=== PATIENT | male | born 1955 | race Two or more races ===

== ENCOUNTER 2017-05-18 10:48 | Emergency (ER) | payer MEDICARE ==
[~2017-05-18] VITALS: Ht 182.9 cm; Wt 59.1 kg
[~2017-05-18 10:48] MED LIST: /MOXI40TA PO; DULC5TAB PO; LEVA1TAB2 PO; NO MEDS AT HOME; TYLE325T5 PO
[2017-05-18 10:49] VITALS: BP 117/80
[2017-05-18] MEDS ORDERED: CLOBETASOL PROP 0.05% OINT 30 GM TOP ONE (11:45)
[2017-05-18] MEDS ORDERED: methylPREDNISolone INJ 125 MG/2 ML VIAL (J2930) IM ONE (11:45)
[2017-05-18] MEDS ORDERED: PRED20TA PO (12:07)
== END 2017-05-18 12:14 | disposition home or self-care (01) ==
LOC: M ED 10:48
DX: L30.9 Dermatitis, unspecified (principal)
CPT/HCPCS: 96372; 99282; J2930

== ENCOUNTER → 2017-06-20 | Outpatient (CLI) | payer MEDICARE ==
[~2017-06-20] MED LIST changes: +PRED20TA PO
[2017-06-20 11:46] LABS: MEAN CORPUSCULAR HEMOGLOBIN 31.8 pg (27.0-33.0); MEAN CORPUSCULAR HGB CONC 32.3 g/dl (32.0-36.5); MEAN CORPUSCULAR VOLUME 98.4 fl (80.0-96.0); RED CELL DISTRIBUTION WIDTH 13.7 % (11.5-14.5); WHITE BLOOD COUNT 9.2 K/mm3 (4.0-10.0)
--- NOTE | 2017-06-20 11:53 | REP ---
Clinical: COPD. Comparison: 02/24/2015. Findings: Mediastinum and cardiac silhouette are normal. The lung jane demonstrate oligemia and hyperinflation as well as scattered chronic changes consistent with COPD. No acute consolidation, effusion, or pneumothorax. Skeletal structures are within normal limits and stable. Impression: COPD. No acute cardiopulmonary process. Signed by Rubén Castro MD 06/20/2017 11:44 A
[2017-06-20 12:16] LABS: ALBUMIN 3.7 GM/DL (3.2-5.2); ALBUMIN/GLOBULIN RATIO 0.95 (1.00-1.93); ALKALINE PHOSPHATASE 61 U/L (45-117); ALT/SGPT 18 U/L (12-78); ANION GAP 8 MEQ/L (8-16); AST/SGOT 16 U/L (15-37); BILIRUBIN,TOTAL 0.3 MG/DL (0.2-1.0); BLOOD UREA NITROGEN 13 MG/DL (7-18); CALCIUM LEVEL 9.5 MG/DL (8.8-10.2); CARBON DIOXIDE LEVEL 28 MEQ/L (21-32); CHLORIDE LEVEL 103 MEQ/L (98-107); CHOLESTEROL LEVEL 197 MG/DL (<200); GLOMERULAR FILTRATION RATE > 60.0 (>49); GLUCOSE, FASTING 98 MG/DL (80-110); POTASSIUM SERUM 4.5 MEQ/L (3.5-5.1); SODIUM LEVEL 139 MEQ/L (136-145); TOTAL PROTEIN 7.6 GM/DL (6.4-8.2); TRIGLYCERIDES LEVEL 128 MG/DL (<150)
--- NOTE | 2017-06-21 09:08 | ECGEPIP ---
Stationary ECG Study [facility] Test Date: 2017-06-20 Pat Name: HAVEN FLORES Department: Room: - Gender: M Business Instructor: VELVET : 1955 Requested By: Maria Teresa Ortega Order Number: [id number] Reading MD: Saurabh Peoples Measurements Intervals [place] Rate: 64 P: 74 [place]: 128 QRS: 74 QRSD: 91 T: 80 QT: 410 QTc: 424 Interpretive Statements SINUS RHYTHM WITH SINUS ARRYTHMIA Electronically Signed On 06-21-2017 9:08:33 EDT by Saurabh Peoples
== END ==
LOC: M LAB 10:31
PROVIDERS: ATTEND Family Medicine
DX: R53.83 Other fatigue (principal); J44.9 Chronic obstructive pulmonary disease, unspecified; Z79.899 Other long term (current) drug therapy

== ENCOUNTER → 2017-07-15 | Outpatient (REF) | payer MEDICARE | LOC: M SMT 12:49 | PROVIDERS: ATTEND Nurse Practitioner Women's Health | DX: R97.20 Elevated prostate specific antigen [PSA] (principal); Z79.899 Other long term (current) drug therapy | CPT/HCPCS: 51798; 81001; 87086; G0463 ==

== ENCOUNTER → 2017-08-12 | Outpatient (CLI) | payer MEDICARE ==
--- NOTE | 2017-08-12 13:09 | REP ---
TRANSRECTAL PROSTATE ULTRASOUND WITH ULTRASOUND GUIDANCE FOR PROSTATE BIOPSY: Real-time sonographic evaluation of prostate performed utilizing transrectal probe. Size of the gland is 4.1 x 2.6 x 5.4 cm for a total volume of 30.2 mL. Echotexture is heterogeneous. A nodular area on the left measures 1.3 x 1.7 cm. Seminal vesicles appear symmetrical. Ultrasound guidance was provided for Dr. iVncent who performed ultrasound guided biopsy of the prostate. Signed by Kayden Arriaga MD 08/12/2017 05:46 P
== END ==
LOC: M SMT PRO 08:44
PROVIDERS: ATTEND Urology
DX: C61 Malignant neoplasm of prostate (principal); R97.20 Elevated prostate specific antigen [PSA]
CPT/HCPCS: 55700; 76872; 76942; G0416

== ENCOUNTER → 2017-08-26 | Outpatient (CLI) | payer MEDICARE ==
[~2017-08-26] MED LIST changes: +ISOVUE-370 76% 100ML VIAL (Q9967) As Ordered ONE
[2017-08-26 08:37] LABS: MEAN CORPUSCULAR HEMOGLOBIN 31.7 pg (27.0-33.0); MEAN CORPUSCULAR HGB CONC 32.8 g/dl (32.0-36.5); MEAN CORPUSCULAR VOLUME 96.9 fl (80.0-96.0); PLATELET COUNT, AUTOMATED 290 10^3/uL (150-450); RED CELL DISTRIBUTION WIDTH 14.5 % (11.5-14.5); WHITE BLOOD COUNT 11.7 10^3/uL (4.0-10.0)
[2017-08-26 09:10] LABS: ANION GAP 10 MEQ/L (8-16); BLOOD UREA NITROGEN 13 MG/DL (7-18); CALCIUM LEVEL 8.9 MG/DL (8.8-10.2); CARBON DIOXIDE LEVEL 30 MEQ/L (21-32); CHLORIDE LEVEL 103 MEQ/L (98-107); CREATININE FOR GFR 0.86 MG/DL (0.70-1.30); GLOMERULAR FILTRATION RATE > 60.0 (>49); GLUCOSE, FASTING 87 MG/DL (80-110); POTASSIUM SERUM 3.6 MEQ/L (3.5-5.1); SODIUM LEVEL 143 MEQ/L (136-145)
--- NOTE | 2017-08-26 09:40 | REP ---
Clinical: Prostate cancer. Comparison: 10/03/2012. Technique: Axial precontrast, contrast enhanced and delayed images from the lung bases to the pubic symphysis using oral and 100 ml Isovue 370 intravenous contrast material with coronal and sagittal re-formations. Findings: Lung bases demonstrate mild early emphysematous changes. Visualized heart and pericardium are normal. Liver demonstrates few scattered hypodensities compatible with cysts measuring up to 1 cm diameter. Spleen, pancreas, gallbladder, bilateral adrenal glands and kidneys are normal. The enteric system is without obstruction or obvious acute inflammatory process. Pelvis demonstrates mild posterior bladder wall thickening and enlarged prostate gland. No pelvic fluid or ascites. No obvious adenopathy although evaluation is somewhat limited by paucity of intraperitoneal fat. No free air. Atherosclerotic changes to the aorta and vasculature noted without aneurysm. Musculoskeletal structures demonstrate degenerative changes without focal osseous abnormality. Impression: 1. Lung bases suggest mild early emphysematous changes. 2. Mildly enlarged prostate gland with associated minimal posterior bladder wall thickening. 3. No obvious adenopathy, ascites, or solitary mass lesion. 4. No obvious osseous metastatic process. Signed by Rubén Castro MD 08/26/2017 09:32 A
--- NOTE | 2017-08-26 14:41 | REP ---
Clinical: History of prostate cancer. Technique: PA and lateral. Comparison: 06/20/2017. Findings: Mediastinum and cardiac silhouette are stable. Lung jane demonstrate chronic fibrosis and interstitial changes. A subtle nodular density with spiculated margins in the medial right lower lung zone on frontal radiograph cannot be excluded. No further consolidation, effusion, or pneumothorax. Skeletal structures demonstrate age-related degenerative changes. Impression: Cannot exclude small spiculated nodular lesion in the right lower lung zone. Consider chest CT for further investigation. Signed by Rubén Castro MD 08/26/2017 09:16 A
== END ==
LOC: M RAD 08:01
PROVIDERS: ATTEND Urology
DX: C61 Malignant neoplasm of prostate (principal); R91.8 Other nonspecific abnormal finding of lung field
CPT/HCPCS: 71020; 74178; 80048; 85027; Q9967

== ENCOUNTER → 2017-08-29 | Outpatient (CLI) | payer MEDICARE ==
[~2017-08-29] MED LIST changes: -ISOVUE-370 76% 100ML VIAL (Q9967) As Ordered ONE
--- NOTE | 2017-08-29 14:44 | REP ---
WHOLE BODY BONE SCAN: Following the intravenous administration of 21.5 mCi technetium 99m MDP, patient's whole body is imaged in the anterior and posterior projections with additional oblique images of the thoracic and pelvic regions performed as well as lateral views of the calvarium, knees, and feet. There is no compelling scintigraphic evidence of osseous metastases. Arthritic uptake is seen at the proximal tibiofibular articulation on the left and, also, there is arthritic uptake in both feet. There appears to be mild bilateral arthritic uptake at the sacroiliac joints bilaterally, as well as in the lateral aspect of the left knee joint. Renal and bladder activity are seen. IMPRESSION: Scattered arthritic uptake without compelling scintigraphic evidence of osseous metastases. Signed by Kayden Arriaga MD 08/29/2017 04:09 P
== END ==
LOC: M RAD 09:49
PROVIDERS: ATTEND Urology
DX: C61 Malignant neoplasm of prostate (principal)
CPT/HCPCS: 78306; A9503

== ENCOUNTER → 2017-09-09 | Outpatient (CLI) | payer MEDICARE ==
[~2017-09-09] MED LIST changes: +ISOVUE-370 76% 100ML VIAL (Q9967) As Ordered ONE
--- NOTE | 2017-09-09 13:58 | REP ---
Clinical: History of COPD/emphysema and prostate cancer. Comparison: 10/03/2012. Technique: Axial contrast enhanced images from the thoracic inlet to the upper abdomen using 100 ml Isovue 370 intravenous contrast material with coronal and sagittal re-formations. Findings: Advanced COPD and emphysematous changes are appreciated along with stable biapical scarring containing elements of nodular soft tissue and fibrosis but unchanged from prior examination. New areas of scarring identified in the right middle lobe and lingula. Small scattered pleural plaques remain unchanged. No acute consolidation, significant nodule or mass lesion identified. No pleural effusion/reaction or pneumothorax. Tracheobronchial tree is patent. No adenopathy. Mediastinum demonstrates normal thoracic aorta and heart/pericardium. Musculoskeletal structures demonstrate age-related changes without focal osseous abnormality. Limited upper abdomen demonstrates normal bilateral adrenal glands. Impression: Advanced COPD and emphysematous changes with stable biapical irregular scarring as well as new areas of scarring in the right middle lobe and lingula. No acute mediastinal or pleuroparenchymal process identified. No osseous lesions appreciated. Signed by Rubén Castro MD 09/09/2017 01:50 P
== END ==
LOC: M RAD 13:22
PROVIDERS: ATTEND Urology
DX: C61 Malignant neoplasm of prostate (principal); R91.1 Solitary pulmonary nodule; Z87.891 Personal history of nicotine dependence
CPT/HCPCS: 71260; Q9967

== ENCOUNTER → 2017-10-06 | Outpatient (CLI) | payer MEDICARE ==
[~2017-10-06] MED LIST changes: -ISOVUE-370 76% 100ML VIAL (Q9967) As Ordered ONE
[2017-10-06 18:11] LABS: MEAN CORPUSCULAR HEMOGLOBIN 31.5 pg (27.0-33.0); MEAN CORPUSCULAR VOLUME 98.5 fl (80.0-96.0); PLATELET COUNT, AUTOMATED 324 10^3/uL (150-450); RED CELL DISTRIBUTION WIDTH 14.2 % (11.5-14.5); WHITE BLOOD COUNT 10.9 10^3/uL (4.0-10.0)
[2017-10-06 18:23] LABS: INR 0.91
[2017-10-06 18:43] LABS: ANION GAP 6 MEQ/L (8-16); BLOOD UREA NITROGEN 12 MG/DL (7-18); CALCIUM LEVEL 9.6 MG/DL (8.8-10.2); CARBON DIOXIDE LEVEL 31 MEQ/L (21-32); CHLORIDE LEVEL 104 MEQ/L (98-107); CREATININE FOR GFR 0.94 MG/DL (0.70-1.30); GLOMERULAR FILTRATION RATE > 60.0 (>49); GLUCOSE, FASTING 92 MG/DL (80-110); POTASSIUM SERUM 4.7 MEQ/L (3.5-5.1); SODIUM LEVEL 141 MEQ/L (136-145)
== END ==
LOC: M SMT 10:07
PROVIDERS: ATTEND Nurse Practitioner Women's Health
DX: Z01.818 Encounter for other preprocedural examination (principal); C61 Malignant neoplasm of prostate; J44.9 Chronic obstructive pulmonary disease, unspecified; N52.1 Erectile dysfunction due to diseases classified elsewhere; Z79.899 Other long term (current) drug therapy

== ENCOUNTER 2017-10-11 05:47 | Inpatient (IN) | payer MEDICARE ==
[2017-10-11] MEDS ORDERED: LR 1,000 ML IV (06:00)
[2017-10-11] MEDS ORDERED: fentaNYL 250 MCG/5 ML INJECTION (J3010) As Ordered (13:30)
[2017-10-11] MEDS ORDERED: LIDOCAINE 2% INJ 100 MG/5 ML SDV (FOR ANES.) As Ordered (13:30)
[2017-10-11] MEDS ORDERED: dexameTHASONE 4 MG/ML 1ML VIAL (J1100) As Ordered ×2 (13:30→15:37)
[2017-10-11] MEDS ORDERED: ROCURONIUM BROMIDE 50 MG/5 ML VIAL As Ordered (13:30)
[2017-10-11] MEDS ORDERED: PROPOFOL 200 MG/20 ML VIAL As Ordered ×2 (13:30→16:15)
[2017-10-11] MEDS ORDERED: MIDAZOLAM INJ 2 MG/2 ML VIAL (J2250) As Ordered (13:31)
[2017-10-11] MEDS ORDERED: PHENYLephrine HCL 500 MCG/5 ML (100MCG/ML) SYRINGE (J2370) As Ordered (15:37)
[2017-10-11] MEDS ORDERED: ePHEDrine SULFATE 25 MG/5 ML(5MG/ML) SYRINGE As Ordered (15:37)
[2017-10-11] MEDS ORDERED: GLYCOPYRROLATE INJ 0.2 MG/ML 2 ML VIAL As Ordered (16:16)
[2017-10-11] MEDS ORDERED: NEOSTIGMINE 10 MG/10 ML VIAL (J2710) As Ordered (16:27)
[2017-10-11] MEDS ORDERED: HYDROmorphone HCL 2 MG/ML 1ML VIAL (J1170) As Ordered (16:33)
[2017-10-11] MEDS ORDERED: LIDOCAINE 2% 5ML JELLY UROJET As Ordered (17:33)
[2017-10-11] MEDS ORDERED: fentaNYL 100 MCG/2 ML INJECTION (J3010) IV (19:15)
[2017-10-11] MEDS ORDERED: METOCLOPRAMIDE INJ 10MG/2ML VIAL (J2765) IV (19:15)
[2017-10-11] MEDS ORDERED: NORCO, ANEXSIA 5/325MG TABLET (HYDROcodone/ACETAMINOPHEN) PO (19:15)
[2017-10-11] MEDS ORDERED: ONDANSETRON 4MG/2ML VIAL (J2405) IV ×2 (19:15)
[2017-10-11] MEDS: LR 1,000 ML IV (19:15)
[2017-10-11] MEDS ORDERED: MEPERIDINE INJ 25 MG/ML VIAL (J2175) IV (19:15)
[2017-10-11] MEDS ORDERED: MORPHINE 4 MG/ML 1ML SYRINGE IV (19:30)
[2017-10-11 19:51] LABS: HEMATOCRIT 37.1 % (42.0-52.0); HEMOGLOBIN 12.2 g/dl (14.0-18.0); MEAN CORPUSCULAR HEMOGLOBIN 31.7 pg (27.0-33.0); MEAN CORPUSCULAR HGB CONC 32.9 g/dl (32.0-36.5); MEAN CORPUSCULAR VOLUME 96.4 fl (80.0-96.0); PLATELET COUNT, AUTOMATED 276 10^3/uL (150-450); RED BLOOD COUNT 3.85 10^6/uL (4.30-6.10); RED CELL DISTRIBUTION WIDTH 13.6 % (11.5-14.5); WHITE BLOOD COUNT 12.4 10^3/uL (4.0-10.0)
[2017-10-11 20:05] LABS: ANION GAP 6 MEQ/L (8-16); BLOOD UREA NITROGEN 13 MG/DL (7-18); CALCIUM LEVEL 8.5 MG/DL (8.8-10.2); CARBON DIOXIDE LEVEL 29 MEQ/L (21-32); CHLORIDE LEVEL 103 MEQ/L (98-107); CREATININE FOR GFR 0.84 MG/DL (0.70-1.30); GLOMERULAR FILTRATION RATE > 60.0 (>49); GLUCOSE, FASTING 173 MG/DL (80-110); POTASSIUM SERUM 4.5 MEQ/L (3.5-5.1); SODIUM LEVEL 138 MEQ/L (136-145)
[2017-10-11] MEDS: KCL 20MEQ IN D5/0.45NS 1000ML 1,000 ML IV (21:00)
[2017-10-11] MEDS: KETOROLAC 30 MG/ML VIAL (J1885) IV (21:26)
[2017-10-11] MEDS: ACETAMINOPHEN 650MG ER TAB (TYLENOL ARTHRITIS) PO (21:26)
[2017-10-12] MEDS: KCL 20MEQ IN D5/0.45NS 1000ML 1,000 ML IV ×2 (05:07→12:41)
[2017-10-12] MEDS: KETOROLAC 30 MG/ML VIAL (J1885) IV ×2 (05:10→14:10)
[2017-10-12] MEDS: LevoFLOXacin 500 MG TABLET PO (05:10)
[2017-10-12] MEDS: ACETAMINOPHEN 650MG ER TAB (TYLENOL ARTHRITIS) PO ×2 (05:11→14:00)
[2017-10-12 07:02] LABS: HEMATOCRIT 34.6 % (42.0-52.0); HEMOGLOBIN 11.6 g/dl (14.0-18.0); MEAN CORPUSCULAR HEMOGLOBIN 31.8 pg (27.0-33.0); MEAN CORPUSCULAR HGB CONC 33.5 g/dl (32.0-36.5); MEAN CORPUSCULAR VOLUME 94.8 fl (80.0-96.0); PLATELET COUNT, AUTOMATED 267 10^3/uL (150-450); RED BLOOD COUNT 3.65 10^6/uL (4.30-6.10); RED CELL DISTRIBUTION WIDTH 13.5 % (11.5-14.5); WHITE BLOOD COUNT 10.5 10^3/uL (4.0-10.0)
[2017-10-12 07:27] LABS: ANION GAP 7 MEQ/L (8-16); BLOOD UREA NITROGEN 13 MG/DL (7-18); CARBON DIOXIDE LEVEL 26 MEQ/L (21-32); CHLORIDE LEVEL 102 MEQ/L (98-107); CREATININE FOR GFR 0.77 MG/DL (0.70-1.30); GLOMERULAR FILTRATION RATE > 60.0 (>49); GLUCOSE, FASTING 186 MG/DL (80-110); POTASSIUM SERUM 4.3 MEQ/L (3.5-5.1); SODIUM LEVEL 135 MEQ/L (136-145)
[2017-10-12] MEDS: PANTOPRAZOLE 40MG INJ (PROTONIX) (C9113) IV (09:00)
== END 2017-10-12 17:37 | disposition home or self-care (01) | DRG 708 ==
LOC: M OR 05:47 → M MSPAV 19:55
PROC: 0VT04ZZ Resection of Prostate, Percutaneous Endoscopic Approach (ICD-10-PCS; principal; 2017-10-11 07:30)
PROC: 07BC4ZX Excision of Pelvis Lymphatic, Percutaneous Endoscopic Approach, Diagnostic (ICD-10-PCS; 2017-10-11 07:30)
PROC: 8E0W4CZ Robotic Assisted Procedure of Trunk Region, Percutaneous Endoscopic Approach (ICD-10-PCS; 2017-10-11 07:30)
DX: C61 Malignant neoplasm of prostate (principal); F17.210 Nicotine dependence, cigarettes, uncomplicated; N52.1 Erectile dysfunction due to diseases classified elsewhere; J44.9 Chronic obstructive pulmonary disease, unspecified; Z79.52 Long term (current) use of systemic steroids

== ENCOUNTER → 2017-11-03 | Outpatient (CLI) | payer MEDICARE ==
[2017-11-03 15:48] LABS: PROSTATIC SPECIFIC AG MONITOR 0.28 NG/ML (< 4.0)
== END ==
LOC: M SMT 09:40
DX: C61 Malignant neoplasm of prostate (principal); Z79.899 Other long term (current) drug therapy
CPT/HCPCS: 84153

== ENCOUNTER → 2018-02-06 | Outpatient (CLI) | payer MEDICARE ==
[2018-02-06 12:58] LABS: PROSTATIC SPECIFIC AG MONITOR 0.01 NG/ML (< 4.0)
== END ==
LOC: M SMT 08:43
DX: Z85.46 Personal history of malignant neoplasm of prostate (principal)
CPT/HCPCS: 84153

== ENCOUNTER → 2018-09-13 | Outpatient (CLI) | payer MEDICARE ==
[2018-09-13 13:39] LABS: PROSTATIC SPECIFIC AG MONITOR < 0.0 NG/ML (< 4.0)
== END ==
LOC: M SMT 08:11
DX: C61 Malignant neoplasm of prostate (principal)
CPT/HCPCS: 84153

== ENCOUNTER → 2018-12-19 | Outpatient (CLI) | payer MEDICARE ==
[~2018-12-19] MED LIST changes: +PRED5TA; +TYLE650T35 PO
== END ==
LOC: M SMT 12:59
PROVIDERS: ATTEND Nurse Practitioner Women's Health
DX: C61 Malignant neoplasm of prostate (principal)

== ENCOUNTER → 2021-11-05 | Outpatient (REF) | payer MEDICARE ==
[~2021-11-05] MED LIST changes: -/MOXI40TA PO; +ACET650T61 PO; +AVEL1TAB2 PO; -TYLE650T35 PO
== END ==
LOC: M LAB REF 15:42
PROVIDERS: ATTEND Physician Assistant
DX: N39.0 Urinary tract infection, site not specified (principal)

== ENCOUNTER 2024-12-16 03:05 | Emergency (ER) | payer MEDICARE ==
[~2024-12-16] VITALS: Ht 182.9 cm; Wt 53.3 kg
[2024-12-16 04:52] VITALS: BP 117/73; TEMP 100.6; O2SAT 95
[2024-12-20] MEDS ORDERED: BENZ200C70 PO (08:13)
[2024-12-20] MEDS ORDERED: ALBU8.5H PO (08:13)
[2024-12-24] MEDS ORDERED: ZYVO1TAB PO (09:28)
[2024-12-24] MEDS ORDERED: MIRT1TAB PO (09:28)
[2024-12-24] MEDS ORDERED: MUCI600T31 PO (09:28)
[2024-12-24] MEDS ORDERED: STIO1AER IN (09:28)
[2024-12-24] MEDS ORDERED: AMOX875T2 PO (09:28)
[2024-12-24] MEDS ORDERED: MIRA3350 PO (10:15)
[2024-12-24] MEDS ORDERED: PROB250C PO (10:15)
[2024-12-24] MEDS ORDERED: PROT1TAB2 PO (10:19)
== END 2024-12-16 05:19 | disposition left against medical advice (07) ==
LOC: M ED 03:05
DX: Z53.21 Procedure and treatment not carried out due to patient leaving prior to being seen by health care provider (principal)

== ENCOUNTER → 2024-12-18 | Outpatient (REF) | payer MEDICARE ==
[~2024-12-18] MED LIST changes: +ALBU8.5H PO; +AMOX875T2 PO; +BENZ200C70 PO; +MIRA3350 PO; +MIRT1TAB PO; +MUCI600T31 PO; +PROB250C PO; +PROT1TAB2 PO; +STIO1AER IN; +ZYVO1TAB PO
[2024-12-18 16:45] LABS: BASO # 0.1 10^3/uL (0.0-0.2); BASO % 0.4 % (0.0-1.0); EOS # 0.1 10^3/uL (0.0-0.5); EOS % 0.2 % (0.0-3.0); HEMATOCRIT 36.1 % (42.0-52.0); LYMPH # 1.4 10^3/uL (1.5-5.0); LYMPH % 5.2 % (24.0-44.0); MEAN CORPUSCULAR HGB CONC 33.2 g/dl (32.0-36.5); MEAN CORPUSCULAR VOLUME 93.3 fl (80.0-96.0); MONO # 2.3 10^3/uL (0.0-0.8); MONO % 8.4 % (2.0-8.0); NEUTROPHILS # 22.9 10^3/uL (1.5-8.5); NEUTROPHILS % 84.5 % (36.0-66.0); PLATELET COUNT, AUTOMATED 633 10^3/uL (150-450); RED BLOOD COUNT 3.87 10^6/uL (4.30-6.10); WHITE BLOOD COUNT 27.1 10^3/uL (4.0-10.0)
[2024-12-18 16:47] LABS: ALBUMIN 1.9 G/DL (3.2-5.2); ALKALINE PHOSPHATASE 106 U/L (40-129); ALT/SGPT 47 U/L (7.0-40); AST/SGOT 61 U/L (<34); BILIRUBIN,TOTAL 0.6 MG/DL (0.3-1.2); BLOOD UREA NITROGEN 16 MG/DL (9-23); CALCIUM LEVEL 8.8 MG/DL (8.3-10.6); CARBON DIOXIDE LEVEL 25 MMOL/L (20-31); CHLORIDE LEVEL 94 MMOL/L (98-107); CHOLESTEROL LEVEL 89 MG/DL (<200); CHOLESTEROL RISK RATIO 8.55 (<5); CREATININE FOR GFR 0.82 MG/DL (0.70-1.30); GLOMERULAR FILTRATION RATE > 60.0 (>49); GLUCOSE, FASTING 149 MG/DL (74-106); HDL CHOLESTEROL 10.4 MG/DL (>40); LDL CHOLESTEROL 50.4 MG/DL (<100); NON-HDL-C 78.6 MG/DL; POTASSIUM SERUM 4.5 MMOL/L (3.5-5.1); PROSTATIC SPECIFIC AG MONITOR 0.07 NG/ML (< 4.00); SODIUM LEVEL 129 MMOL/L (136-145); TOTAL PROTEIN 6.6 G/DL (5.7-8.2); TRIGLYCERIDES LEVEL 141 MG/DL (<150)
[2024-12-18 16:49] LABS: FREE T4 1.09 NG/DL (0.89-1.76); THYROID STIMULATING HORMONE 0.223 uIU/ML (0.55-4.78); TOTAL 25(OH) VITAMIN D 27.2 NG/ML (20.0-100.0)
[2024-12-18 16:58] LABS: HEMOGLOBIN A1c 5.4 % (4.0-6.0)
[2024-12-18 17:07] LABS: ERYTHROCYTE SEDIMENTATION RATE 94 mm/hr (0-20)
[2024-12-18 17:20] LABS: HIV 1&2 SCREEN NEGATIVE (NEGATIVE)
[2024-12-18 17:27] LABS: HEPATITIS C VIRUS ABY INDEX 0.32 INDEX (<0.8)
== END ==
LOC: M LAB REF 12:20
PROVIDERS: ATTEND Physician Assistant
DX: R63.4 Abnormal weight loss (principal); Z11.9 Encounter for screening for infectious and parasitic diseases, unspecified; E55.9 Vitamin D deficiency, unspecified; Z13.220 Encounter for screening for lipoid disorders; R50.9 Fever, unspecified; Z85.46 Personal history of malignant neoplasm of prostate

== ENCOUNTER → 2024-12-31 | Outpatient (REF) | payer MEDICARE ==
[2024-12-31 15:30] LABS: HEMATOCRIT 37.2 % (42.0-52.0); HEMOGLOBIN 11.8 g/dl (13.5-17.5); MEAN CORPUSCULAR HEMOGLOBIN 30.6 pg (27.0-33.0); MEAN CORPUSCULAR HGB CONC 31.7 g/dl (32.0-36.5); MEAN CORPUSCULAR VOLUME 96.6 fl (80.0-96.0); PLATELET COUNT, AUTOMATED 962 10^3/uL (150-450); RED BLOOD COUNT 3.85 10^6/uL (4.30-6.10); WHITE BLOOD COUNT 11.2 10^3/uL (4.0-10.0)
[2024-12-31 15:32] LABS: ALKALINE PHOSPHATASE 111 U/L (40-129); ALT/SGPT 49 U/L (7.0-40); AST/SGOT 33 U/L (<34); BILIRUBIN,TOTAL 0.2 MG/DL (0.3-1.2); BLOOD UREA NITROGEN 14 MG/DL (9-23); CALCIUM LEVEL 9.2 MG/DL (8.3-10.6); CARBON DIOXIDE LEVEL 29 MMOL/L (20-31); CHLORIDE LEVEL 97 MMOL/L (98-107); CREATININE FOR GFR 0.71 MG/DL (0.70-1.30); GLOMERULAR FILTRATION RATE > 60.0 (>49); GLUCOSE, FASTING 88 MG/DL (74-106); POTASSIUM SERUM 5.3 MMOL/L (3.5-5.1); SODIUM LEVEL 135 MMOL/L (136-145); TOTAL PROTEIN 7.9 G/DL (5.7-8.2)
== END ==
LOC: M LAB REF 14:53
PROVIDERS: ATTEND Family Medicine Addiction Medicine
DX: J85.2 Abscess of lung without pneumonia (principal)

== ENCOUNTER → 2025-01-07 | Outpatient (REF) | payer MEDICARE ==
[2025-01-07 18:27] LABS: BASO # 0.1 10^3/uL (0.0-0.2); BASO % 1.3 % (0.0-1.0); EOS # 0.4 10^3/uL (0.0-0.5); HEMATOCRIT 33.1 % (42.0-52.0); HEMOGLOBIN 10.6 g/dl (13.5-17.5); LYMPH # 2.8 10^3/uL (1.5-5.0); LYMPH % 27.2 % (24.0-44.0); MEAN CORPUSCULAR HEMOGLOBIN 30.3 pg (27.0-33.0); MEAN CORPUSCULAR VOLUME 94.6 fl (80.0-96.0); MONO # 1.2 10^3/uL (0.0-0.8); MONO % 12.1 % (2.0-8.0); NEUTROPHILS # 5.5 10^3/uL (1.5-8.5); NEUTROPHILS % 54.7 % (36.0-66.0); PLATELET COUNT, AUTOMATED 409 10^3/uL (150-450); WHITE BLOOD COUNT 10.1 10^3/uL (4.0-10.0)
[2025-01-07 18:29] LABS: ALBUMIN 2.3 G/DL (3.2-5.2); ALKALINE PHOSPHATASE 101 U/L (40-129); ALT/SGPT 22 U/L (7.0-40); AST/SGOT 16 U/L (<34); BILIRUBIN,TOTAL 0.4 MG/DL (0.3-1.2); BLOOD UREA NITROGEN 9 MG/DL (9-23); CARBON DIOXIDE LEVEL 27 MMOL/L (20-31); CHLORIDE LEVEL 104 MMOL/L (98-107); CREATININE FOR GFR 0.62 MG/DL (0.70-1.30); GLOMERULAR FILTRATION RATE > 60.0 (>49); GLUCOSE, FASTING 92 MG/DL (74-106); POTASSIUM SERUM 4.8 MMOL/L (3.5-5.1); SODIUM LEVEL 137 MMOL/L (136-145); TOTAL PROTEIN 7.8 G/DL (5.7-8.2)
== END ==
LOC: M LAB REF 17:19
PROVIDERS: ATTEND Physician Assistant
DX: R63.4 Abnormal weight loss (principal); Z79.899 Other long term (current) drug therapy